=== PATIENT | male | born 1930 | race Caucasian/White ===

== ENCOUNTER → 2017-01-13 | Outpatient (CLI) | payer MEDICARE ==
--- NOTE | 2017-01-14 08:33 | CT ---
EXAMINATION TYPE: CT abdomen pelvis w con DATE OF EXAM: 01/13/2017 COMPARISON: NONE HISTORY: Left inguinal hernia x [address] DLP: 667.00 mGycm Automated exposure control for dose reduction was used. TECHNIQUE: Helical acquisition of images from the lung bases through the pelvis have been completed. CONTRAST: Performed with Oral Contrast and with IV Contrast, patient injected with 100 mL of Omnipaque 300. FINDINGS: LUNG BASES: There is a posterior diaphragmatic hernia on the right containing fat. Eventration of the hemidiaphragms is suspected. Hiatal hernia, fixed intrathoracic portion of stomach is present. AORTA: Atheromatous changes are present. Irregular wall of the aorta is present in the inferolateral renal location, the aorta measures 3.7 cm proximal to the common iliac arteries. LIVER/GB: Liver shows low attenuation possibly due to hepatic steatosis, gallbladder is normal. PANCREAS: No significant abnormality is seen. SPLEEN: Calcifications likely are present due to old granulomatous disease. ADRENALS: No significant abnormality is seen. KIDNEYS: No significant abnormality is seen. REPRODUCTIVE ORGANS: No significant abnormality is seen BOWEL: Left inguinal hernia contains sigmoid colon, there is some extensive diverticular change invo lving the sigmoid colon. The distal stomach shows some questionable wall thickening, correlate to exc lude gastritis or possible duodenitis the proximal small bowel. FREE AIR: No Free Air visible. ASCITES: None visible. PELVIC ADENOPATHY: None visualized. RETROPERITONEAL ADENOPATHY: No Retroperitoneal Adenopathy visible. URINARY BLADDER: There is likely a Hutch diverticulum on the left. Surgical clips are present within the pelvis. Bladder wall thickening could be due to cystitis or possibly chronic outlet obstruction. OSSEOUS STRUCTURES: Degenerative disc changes are present in the visualized spine. IMPRESSION: LEFT INGUINAL HERNIAS DESCRIBED. ADDITIONAL FINDINGS ABOVE.
== END | disposition home or self-care (01) ==
LOC: RADCTMAIN 17:26
PROVIDERS: ATTEND Family Medicine
DX: K40.91 Unilateral inguinal hernia, without obstruction or gangrene, recurrent (principal)
CPT/HCPCS: 74177; Q9967

== ENCOUNTER → 2017-11-25 | Outpatient (CLI) | payer MEDICARE ==
--- NOTE | 2017-11-25 14:24 | NM ---
EXAMINATION TYPE: NM bone scan whole body DATE OF EXAM: 11/25/2017 COMPARISON: NONE HISTORY: Prostate cancer Delayed whole-body scanning was performed following the injection of 21.9 mCi Tc 99m MDP. Images wer e acquired 3 hours post injection. FINDINGS: There is increased signal through the right clavicle to the sternal clavicular junction. This manubri um has increased signal. There are multiple patchy areas of increased signal within the ribs. Small f ocus of radiotracer accumulation is just inferior to the region of the left lesser trochanter. Some f ocal increased uptake is within the right acetabular region and left medial ischio ramus. Radiotracer what appears to be T12 is increased suspicious for metastatic disease. Multiple foci of asymmetric f ocal radiotracer within the thoracolumbar junction region suspicious for metastatic disease. Some radiotracer accumulation at the first metacarpal phalangeal joint space of the bilateral wrists and bilateral elbows is more likely related to degenerative change. IMPRESSION: 1. Multiple foci of radiotracer accumulation within the bilateral ribs the right clavicle and manubri um right lateral sternum are suspicious for metastasis. 2. There is some focal radiotracer accumulation T12 suspicious for metastasis. 3. Focal areas of radiotracer within the pelvis discussed above suspicious for metastatic disease. 4. Some mild degenerative joint changes are also noted.
== END | disposition home or self-care (01) ==
LOC: RADNMMAIN 09:51
PROVIDERS: ATTEND Internal Medicine Hematology & Oncology
DX: R93.7 Abnormal findings on diagnostic imaging of other parts of musculoskeletal system (principal); C61 Malignant neoplasm of prostate
CPT/HCPCS: 78306; A9503